=== PATIENT | male | born 1955 | race Caucasian/White ===

== ENCOUNTER 2021-10-12 19:00 | Emergency (ER) | payer OTHER, SELFPAY ==
--- NOTE | ~2021-10-12 | CT_ITS ---
EXAMINATION: CT abdomen pelvis w con DATE: 10/12/2021 23:21 INDICATION: Right lower quadrant abdominal pain TECHNIQUE: Computed tomography (CT) of the abdomen and pelvis was performed with 100 cc Omnipaque 350 intravenous contrast. The dose-length product was 319.25 mGy-cm. Automated exposure control and iter ative reconstruction technique were employed. COMPARISON: None. FINDINGS: Lung bases are unremarkable. No significant pleural or pericardial effusion. Heart size nor mal. No significant vascular abnormality. No lymphadenopathy. There are surgical changes of right ing uinal hernia repair. There is a 3 mm distal right ureteral stone near the UVJ with mild hydroureteronephrosis. There is de layed enhancement of the right kidney. There are bilateral renal cysts. Mild right perinephric strand ing. Nonobstructive bowel gas pattern. The liver, pancreas, adrenal glands are unremarkable. There are erendira cified granulomas of the spleen. Nonobstructive bowel gas pattern. Small hiatal hernia. IMPRESSION: 1. Obstructing 3 mm distal right ureteral stone near the UVJ with mild resultant hydroureteronephrosi s and perinephric stranding. Reviewed, dictated and finalized at location A. IMPRESSION: 1. Obstructing 3 mm distal right ureteral stone near the UVJ with mild resultan t hydroureteronephrosis and perinephric stranding.
[2021-10-12 19:31] VITALS: BP 147/78; PULSE 90; RESP 18; TEMP 36.9; O2SAT 100
--- NOTE | 2021-10-12 21:37 | ED.ABDPAIN ---
HPI - Abdominal Pain General Chief Complaint: Abdominal Pain Stated Complaint: lower abd pain Time Seen by Provider: 10/12/21 21:37 Source: patient Mode of arrival: ambulatory Limitations: no limitations History of Present Illness HPI narrative: Patient is a 66-year-old male with history of asthma and left inguinal hernia repair, presenting to the emergency department for evaluation of lower abdominal pain. Patient reports pain located in his right lower abdomen that is aching, sharp in nature. He denies any significant flank pain at the time of my assessment. He reports 4 episodes of nonbloody, nonbilious emesis today, continued nausea, and decreased oral intake secondary to this. He denies chest pain, cough or shortness of breath. He denies dysuria or hematuria but does report difficulty with urination. He denies history of nephrolithiasis or urinary retention. Patient reports history of left inguinal hernia repair with Dr. Osorio. He denies history of bowel obstruction. He denies any significant distention. Patient denies constipation or diarrhea. He reports subjective fever and chills. Patient denies rhinorrhea, cough or congestion. He denies sore throat. Related Data Allergies Allergy/AdvReac Type Severity Reaction Status Date / Time No Known Allergies Allergy Mild Verified 02/25/19 13:36 Review of Systems Review of Systems: CONSTITUTIONAL: Subjective fever and chills EYES: Denies visual changes, redness, or discharge. ENT: Denies rhinorrhea, congestion, sore throat, or otalgia. CARDIOVASCULAR: Denies chest pain, palpitations, or edema. RESPIRATORY: Denies cough or dyspnea. GASTROINTESTINAL: Reports right lower quadrant abdominal pain, nausea and vomiting GENITOURINARY: Denies dysuria or hematuria. SKIN: Denies rash or itching. MUSCULOSKELETAL: Denies back pain, joint pain, or myalgia. NEUROLOGIC: Denies headache, numbness, or weakness. [facility] Past Medical History Medical History Acute bronchitis Asthma Surgical History Surgical History History of left inguinal hernia repair 01/24/19 Family History Family History Mother Family history of malignant neoplasm Father Diabetes mellitus Hypertension Family history of cardiovascular disease Sibling Hypertension Social History Social History Smoking status: Never smoker Alcohol intake: current Exam Narrative: GENERAL: Awake, alert, conversant HEAD: Normocephalic, atraumatic. EYES: PERRLA and EOMI. ENT: Nares clear, no rhinorrhea or epistaxis. Mucous membranes moist. NECK: Supple. CHEST: No respiratory distress, breathing even and non labored HEART: Regular rate, sinus rhythm ABDOMEN:Non distended, right lower quadrant abdominal pain, no guarding, nonrigid, no rebound, no flank tenderness bilaterally EXTREMITIES: Normal range of motion. No edema. SKIN: Warm, dry, no rash. NEURO:No focal deficits. Alert and oriented x3 Course Vital Signs Vital signs: Vital Signs Temperature 36.9 C 10/12/21 19:31 Pulse Rate 90 10/12/21 19:31 Respiratory Rate 18 10/12/21 19:31 Blood Pressure 147/78 H 10/12/21 19:31 Pulse Oximetry 100 10/12/21 19:31 Oxygen Delivery Room Air 10/12/21 19:31 Temperature 36.9 C 10/12/21 19:31 Pulse Rate 73 10/13/21 01:34 Respiratory Rate 18 10/13/21 01:34 Blood Pressure 145/72 H 10/13/21 01:34 Pulse Oximetry 99 10/13/21 01:34 Oxygen Delivery Room Air 10/12/21 19:31 MDM - Abdominal Pain MDM Narrative Medical decision making narrative: Patient presenting for evaluation of right lower quadrant abdominal pain. At the time of assessment, ABCs are intact and vital signs are stable. Patient with evidence of elevated creatinine, but no previous available for comparison, unkno
[2021-10-12 21:58] LABS: Basophils Percent Auto 0.2 % (0.2-1.2); Hematocrit 45.6 % (42.0-52.0); Hemoglobin 14.9 g/dL (14.0-18.0); Immature Granulocyte Absolute 0.03 K/mm3 (0.00-0.031); Immature Granulocyte Percent A 0.2 % (0-0.5); Lymphocytes Absolute Auto 0.85 K/mm3 (0.9-3.2); Lymphocytes Percent Auto 6.6 % (18.3-44.2); Mean Corpuscular HGB Conc 32.7 g/dl (32-36); Mean Corpuscular Hemoglobin 30.7 pg (26-34); Mean Platelet Volume 9.4 fl (7.4-10.4); Monocytes Absolute Auto 0.8 K/mm3 (0.1-0.6); Monocytes Percent Auto 6.3 % (2.6-8.5); Neutrophils Absolute Auto 11.2 K/mm3 (1.3-6.7); Neutrophils Percent Auto 86.7 % (45.5-73.1); Platelet Count Result 280 k/mm3 (150-375); Red Blood Count 4.85 M/mm3 (4.6-6.20); Red Cell Distribution Width 12.6 % (11.5-14.5); White Blood Count 12.9 K/mm3 (4.5-10.0)
[2021-10-12 22:08] LABS: Alanine Aminotransferase 20 U/L (6-50); Albumin Level 4.4 g/dL (3.5-5.1); Alkaline Phosphatase 71 U/L (38-126); Anion Gap 9 mmol/L (8-16); Aspartate Amino Transferase 27 U/L (17-59); Bilirubin,Total 0.9 mg/dL (0.2-1.3); Blood Urea Nitrogen 21 mg/dL (9-20); Carbon Dioxide 27 mmol/L (22-30); Chloride 104 mmol/L (98-107); Estimated CRCL calculation 42 ml/min; Estimated Glomerular Filt Rate 44; Glucose 108 mg/dL (65-110); Lipase 27 U/L (23-300); Potassium 4.5 mmol/L (3.4-5.0); Sodium 140 mmol/L (137-145)
[2021-10-12] MEDS: SODIUM CHLORIDE 0.9% IV 1,000 ML 999 ML IV CONT (23:02)
[2021-10-13 00:22] VITALS: BP 140/71; PULSE 87; RESP 18; O2SAT 100
--- NOTE | 2021-10-13 00:26 | PC.NURSE ---
Pt states he is still unable to urinate. Pt refusing catheter. bed rail let down to allow pt to stand
[2021-10-13 01:03] LABS: Appearance Urine Clear (Clear); Bilirubin Urine 1+ (Negative); Blood Urine Negative (Negative); Color Urine Yellow (Yellow); Glucose Urine UA Negative (Negative); Ketones Urine 2+ mg/dL (Negative); Leukocyte Esterase Ur Negative LEU/UL (Negative); Nitrate Urine Negative (Negative); Protein Urine Negative (Negative); Urobilinogen Urine 0.2 mg/dL (<2.0); pH Urine 5.5 (5.0-9.0)
[2021-10-13 01:11] LABS: Bacteria Urine Trace /hpf; Mucus Urine Few /lpf; RBC Urine 0-2 /hpf (0-2); Squamous Epithelial Cell Urine Rare /hpf (Few)
[2021-10-13 01:22] LABS: Add Urine Microscopic? YES
[2021-10-13] MEDS: ONDANSETRON HCL ODT 4 MG TABLET PO (01:33)
[2021-10-13 01:34] VITALS: BP 145/72; PULSE 73; RESP 18; O2SAT 99
[2021-10-13] MEDS: oxyCODONE/ACETAMINOPHEN (*CRX) 5-325 MG TABLET 1 TABLET PO (01:34)
[2021-10-13] MEDS: TAMSULOSIN HCL 0.4 MG CAPSULE PO (01:34)
== END 2021-10-13 02:40 | disposition home or self-care (01) ==
PROVIDERS: Emergency Provider Emergency Medicine; PCP Family Medicine
DX: N13.2 Hydronephrosis with renal and ureteral calculous obstruction (principal); J45.909 Unspecified asthma, uncomplicated
CPT/HCPCS: 36415; 74177; 80053; 81001; 83690; 85025; 96360; 99284; A9270; J7030; Q9967

== ENCOUNTER 2021-12-02 13:42 | Outpatient (CLI) | payer OTHER, SELFPAY ==
--- NOTE | ~2021-12-02 | CT_ITS ---
EXAMINATION: CT abdomen pelvis wo con DATE: 12/02/2021 14:14 INDICATION: Right ureteral stone TECHNIQUE: Computed tomography (CT) of the abdomen and pelvis was performed without intravenous contr ast. The dose-length product (DLP) was 176.23 mGy-cm. Automated exposure control and iterative recons truction technique were employed. COMPARISON: 10/12/2021 FINDINGS: The lung bases are clear. The heart size is normal. There is small sliding hiatal hernia. P unctate calcifications in an otherwise normal spleen likely represent healed granulomatous disease. T he liver, pancreas, gallbladder, and adrenal glands are normal. Cysts of the kidneys measure up to 2. 6 cm on the left. No pathologically enlarged abdominal or pelvic lymph nodes are identified. There is no free intraperitoneal gas or evidence of bowel obstruction. Changes of right inguinal hernia repai r are noted. The previously described right distal ureteral stone is no longer evident, consistent wi th interval treatment or passage. There is no hydronephrosis or hydroureter. Sclerotic lesions of the left ilium and right sacrum likely reflect bone islands. IMPRESSION: 1. Interval treatment or passage of the previously described right distal ureteral stone. Reviewed, dictated and finalized at location F. IMPRESSION: 1. Interval treatment or passage of the previously described right distal urete ral stone.
== END 2021-12-02 13:43 | disposition home or self-care (01) ==
PROVIDERS: PCP Nurse Practitioner Family; Visit Provider Nurse Practitioner
DX: N20.1 Calculus of ureter (principal)
CPT/HCPCS: 74176